=== PATIENT | male | born 1955 | race Caucasian/White ===

== ENCOUNTER 2025-07-18 06:12 | Day surgery (SDC) | payer MEDICARE ==
[2025-07-18] VITALS (13 sets, daily range): BP systolic 94–120; BP diastolic 45–74
[~2025-07-18] VITALS: Ht 190.5 cm; Wt 84.9 kg
[~2025-07-18 06:12] MED LIST: CELE100 PO; PROSTATE PILL PO; VITAMIN D310 MC4 PO
[2025-07-18] MEDS ORDERED: Ropivacaine 0.5% HCl/Pf 123.125 MG,EPINEPHrine HCL 0.25 MG,Ketorolac Tromethamine 15 MG... INFIL SCH (07:40)
[2025-07-18] MEDS ORDERED: Tranexamic Acid 100 ML IV SCH (07:40)
[2025-07-18] MEDS ORDERED: CeFAZolin Sodium 2,000 MG in NS 100 ML IV SCH ×2 (07:40→18:15)
[2025-07-18] MEDS ORDERED: Chlorhexidine Mouth Care 15 ML UDC MT SCH (07:40)
[2025-07-18] MEDS ORDERED: Ondansetron HCl 2 MG / ML 2ML Vial IV PRN ×2 (08:50→09:40)
[2025-07-18] MEDS ORDERED: Metoclopramide HCl 5MG / ML 2ML Vial IV PRN ×2 (08:50→09:40)
[2025-07-18] MEDS ORDERED: Morphine Sulfate 4 MG/1 ML Injection IV PRN (08:50)
[2025-07-18] MEDS ORDERED: Ondansetron HCl 2 MG / ML 2ML Vial ONE (08:54)
[2025-07-18] MEDS ORDERED: Midazolam HCl 1MG / ML 2ML Vial ONE (08:54)
[2025-07-18] MEDS ORDERED: Metoclopramide HCl 5MG / ML 2ML Vial ONE (08:54)
[2025-07-18] MEDS ORDERED: HYDROmorphone HCl/Pf 1MG SYR IV PRN ×2 (08:55→09:45)
[2025-07-18] MEDS ORDERED: ePHEDrine Sulfate 50 MG/ML 1ML Injection IV PRN (08:55)
[2025-07-18] MEDS ORDERED: FentaNYL Citrate 50 MCG/ML 2 ML Injection ONE (08:55)
[2025-07-18] MEDS ORDERED: FentaNYL Citrate 50 MCG/ML 2 ML Injection IV PRN ×2 (08:55)
[2025-07-18] MEDS ORDERED: Sugammadex Sodium 200 MG/2ML SDV (100 MG/ML) ONE (09:07)
[2025-07-18] MEDS ORDERED: Magnesium Hydroxide Conc 10 ML UDC PO PRN (09:40)
[2025-07-18] MEDS ORDERED: ePHEDrine Sulfate 50 MG/ML 1ML Injection ONE (10:25)
[2025-07-18] MEDS ORDERED: FLU VACC TS2025(65UP)/MF59C/PF 45 MCG/0.5 ML SYRINGE IM SCH (10:25)
--- NOTE | 2025-07-18 14:10 | NUR ---
post-op PATIENT TO ROOM 216 S/P L TKA. TELFA TEGADERM AND ISELA WRAP ARE C/D/I. VSS. PATIENT TOLERATING SIPPIN ON CL. DENIES PAIN. ABLE TO WIGGLE ALL TOES AND LIFT BOTH LEGS. DENIIE N/T. TXA GIVEN AND SPOUSE IN ROOM AT THIS TIME CALL LIGHT IN REACH.
--- NOTE | 2025-07-18 16:54 | NUR ---
DISCHARGE PATIENT UP WITH THERAPY, WALKS TO GYM AND WALKS THE STAIRS. VOIDING SPONTANEOUSLY. MEDICATED PER EMAR FOR PAIN. VSS. ALL DISHCARGE INSTRUCTIONS READ AND SIGNED ACKOWNLEDGEMENT. ICE MACHINE PACKED, IV TAKEN OUT INTACT. PATIENT IS WHEELED OUT TO PRIVATE CAR.
[2025-07-18] MEDS ORDERED: Ketorolac Tromethamine 15mg Vial IV SCH (18:00)
== END 2025-07-18 16:46 | disposition home or self-care (01) ==
LOC: ORSCMMR 06:12 → ORD 09:15 → ORSCMMR 09:15 → SURS 12:48 → ORSCMMR 16:46
PROVIDERS: Orthopaedic Surgery
PROC: 0SRD0JA Replacement of Left Knee Joint with Synthetic Substitute, Uncemented, Open Approach (ICD-10-PCS; principal; 2025-07-18 09:15)
DX: M17.12 Unilateral primary osteoarthritis, left knee (principal); Z79.899 Other long term (current) drug therapy
CPT/HCPCS: 73560-LT; 97110; 97116; 97161; 97530; A9270; C1776; J0166; J0690; J0735; J1885; J2250; J2405; J2704; J2765; J2795; J3010; J7120